=== PATIENT | female | born 1950 | race Caucasian/White ===

== ENCOUNTER → 2017-03-01 | Outpatient (POV) | payer MEDICARE, SELFPAY | PROVIDERS: Visit Provider Podiatrist ==

== ENCOUNTER → 2017-03-29 | Outpatient (POV) | payer MEDICARE, SELFPAY | PROVIDERS: Visit Provider Podiatrist ==

== ENCOUNTER → 2017-12-07 08:50 | Outpatient (CLI) | payer MEDICARE, SELFPAY ==
[2017-12-07 09:58] LABS: Hemoglobin A1C 6.2 % (0.0-7.0)
[2017-12-07 10:27] LABS: Alanine Aminotransferase 31 U/L (12-78); Albumin Level 4.2 gm/dL (3.4-5.0); Albumin/Globulin Ratio 1.4 (1.1-1.8); Alkaline Phosphatase 100 U/L (46-116); Anion Gap 13.8 mEq/L (5-15); Aspartate Amino Transferase 12 U/L (15-37); Bilirubin,Total 0.5 mg/dL (0.2-1.0); Blood Urea Nitrogen 17 mg/dL (7-18); Calcium 9.4 mg/dL (8.5-10.1); Carbon Dioxide 31 mmol/L (21.0-32.0); Chloride 105 mmol/L (98-107); Chol/HDL Ratio 4.8 (1-3.5); Cholesterol 186 mg/dL (140-200); Creatinine,Serum 0.92 mg/dL (0.55-1.02); Estimated Glomerular Filt Rate 61 ml/min (>60); GFR (African American) 73 ML/MIN (>60); Globulin 3.1 gm/dl (1.3-3.2); Glucose 138 mg/dL (74-106); HDL Cholesterol 39 mg/dL (29-89); LDL Cholesterol 106 mg/dL (0-130); Potassium 3.8 mmoL/L (3.5-5.1); Sodium 146 mmol/L (136-145); Total Protein,Serum 7.3 gm/dL (6.4-8.2); Triglycerides 204 mg/dL (30-200); VLDL Cholesterol 41 mg/dL (0-40)
== END ==
PROVIDERS: Visit Provider Family Medicine
DX: I10 Essential (primary) hypertension (principal); E78.5 Hyperlipidemia, unspecified; E55.9 Vitamin D deficiency, unspecified; G62.9 Polyneuropathy, unspecified; Z79.899 Other long term (current) drug therapy
CPT/HCPCS: 36415; 80053; 80061; 82652; 83036

== ENCOUNTER → 2018-02-04 13:24 | Outpatient (POV) | payer MEDICARE, SELFPAY | PROVIDERS: PCP Family Medicine; Visit Provider Dermatology | DX: Z00.00 Encounter for general adult medical examination without abnormal findings (principal) ==

== ENCOUNTER → 2018-02-11 14:14 | Outpatient (POV) | payer MEDICARE, SELFPAY | PROVIDERS: PCP Family Medicine; Visit Provider Dermatology | DX: Z00.00 Encounter for general adult medical examination without abnormal findings (principal) ==

== ENCOUNTER → 2018-06-24 12:49 | Outpatient (POV) | payer MEDICARE, SELFPAY | PROVIDERS: Visit Provider Dermatology | DX: Z00.00 Encounter for general adult medical examination without abnormal findings (principal) ==

== ENCOUNTER → 2018-09-09 10:23 | Outpatient (POV) | payer MEDICARE, SELFPAY | PROVIDERS: Visit Provider Dermatology | DX: Z00.00 Encounter for general adult medical examination without abnormal findings (principal) ==

== ENCOUNTER → 2018-09-23 09:02 | Outpatient (POV) | payer MEDICARE, SELFPAY | PROVIDERS: Visit Provider Dermatology | DX: Z00.00 Encounter for general adult medical examination without abnormal findings (principal) ==

== ENCOUNTER → 2018-09-30 11:58 | Outpatient (CLI) | payer MEDICARE, SELFPAY ==
--- NOTE | 2018-09-30 12:05 | XR_ITS ---
XR wrist RT min 3V HISTORY posttraumatic pain ITS.REASON: RT HAND INJURY ORDERING PHYSICIAN: Andreas Talley MD PATIENT AGE: 68 years Comparison: None FINDINGS: No fracture or dislocation. No lytic or blastic change. There is normal mineralization.. The joint spaces are well-preserved. There are mild osteoarthritic changes of the first metacarpal carpal joint with a small periarticular calcification along the ulnar aspect of the first metacarpal carpal joint. IMPRESSION: No acute finding
--- NOTE | 2018-09-30 12:05 | XR_ITS ---
XR hand RT min 3V HISTORY: Posttraumatic pain ITS.REASON: RT HAND INJURY ORDERING PHYSICIAN: Andreas Talley MD PATIENT AGE: 68 years COMPARISON: None FINDINGS: No fracture or dislocation. No lytic or blastic change. There is normal mineralization.. The joint spaces are well-preserved. No significant degenerative/arthritic changes. No erosive changes evident.. IMPRESSION: Negative, no acute finding
== END ==
PROVIDERS: PCP Family Medicine; Visit Provider Family Medicine
DX: M25.531 Pain in right wrist (principal); M79.641 Pain in right hand
CPT/HCPCS: 73110; 73130

== ENCOUNTER → 2018-10-02 08:33 | Outpatient (CLI) | payer MEDICARE, SELFPAY ==
[2018-10-02 11:02] LABS: Hemoglobin A1C 6.2 % (0.0-7.0)
[2018-10-02 12:47] LABS: Alanine Aminotransferase 37 U/L (12-78); Albumin Level 4.1 gm/dL (3.4-5.0); Albumin/Globulin Ratio 1.4 (1.1-1.8); Alkaline Phosphatase 91 U/L (46-116); Anion Gap 15.9 mEq/L (5-15); Aspartate Amino Transferase 18 U/L (15-37); Bilirubin,Total 0.6 mg/dL (0.2-1.0); Blood Urea Nitrogen 17 mg/dL (7-18); Carbon Dioxide 28 mmol/L (21.0-32.0); Chloride 105 mmol/L (98-107); Chol/HDL Ratio 4.8 (1-3.5); Cholesterol 163 mg/dL (140-200); Creatinine,Serum 0.87 mg/dL (0.55-1.02); Estimated Glomerular Filt Rate 64 ml/min (>60); GFR (African American) 78 ML/MIN (>60); Globulin 2.9 gm/dl (1.3-3.2); Glucose 149 mg/dL (74-106); HDL Cholesterol 34 mg/dL (29-89); LDL Cholesterol 94 mg/dL (0-130); Potassium 3.9 mmoL/L (3.5-5.1); Sodium 145 mmol/L (136-145); Thyroid Stimulating Hormone 2.61 uIU/ml (0.358-3.740); Triglycerides 177 mg/dL (30-200); VLDL Cholesterol 35 mg/dL (0-40)
== END ==
PROVIDERS: Visit Provider Family Medicine
DX: E78.5 Hyperlipidemia, unspecified (principal); R73.9 Hyperglycemia, unspecified; I10 Essential (primary) hypertension; G62.9 Polyneuropathy, unspecified
CPT/HCPCS: 36415; 80053; 80061; 83036; 84443

== ENCOUNTER → 2018-11-19 11:32 | Outpatient (CLI) | payer MEDICARE, SELFPAY ==
--- NOTE | 2018-11-19 11:42 | XR_ITS ---
XR chest 2V HISTORY: ITS.REASON: F/U PNEUMONIA shortness of air, previous pneumonia ORDERING PHYSICIAN: Andreas Talley MD PATIENT AGE: 68 years COMPARISON: 12/09/2015 FINDINGS: Mild cardiomegaly. COPD with mild hyperinflation. Mild scarring in the anterior clear space inferiorly. No lobar consolidation or collapse. No acute bony findings. IMPRESSION: Borderline cardiomegaly with COPD. No change with no acute finding.
== END ==
PROVIDERS: PCP Family Medicine; Visit Provider Family Medicine
DX: R06.02 Shortness of breath (principal); Z87.01 Personal history of pneumonia (recurrent)
CPT/HCPCS: 71046

== ENCOUNTER → 2018-12-01 12:53 | Outpatient (CLI) | payer MEDICARE, SELFPAY ==
--- NOTE | 2018-12-01 12:55 | CT_ITS ---
CT lung screening EXAM: CT LUNG LOW DOSE WO CONTRAST HISTORY: 30 pack-year smoking history, asymptomatic for lung cancer ITS.REASON: CURRENT TOBACCO USE ORDERING PHYSICIAN: Andreas Talley MD PATIENT AGE: 68 years COMPARISON: None TECHNIQUE: The exam was performed on a [employer] Speed [address] scanner using 2.90 mGy CTDI. A low dose helical CT CHEST was performed on a multi-detector scanner. All CT scans at the facility use one or more dose reduction, viz: automated exposure control, ma/kV adjustment per patient size (including targeted exams where dose is matched to indication, i.e. head), or iterative reconstruction technique. The LDCT was performed in a facility that meets the criteria for the screening program. Data regarding this exam was submitted to ACR which is an approved registry. The order for this exam indicates that it came as a result of a lung cancer screening counseling shard decision-making visit that included all the elements required of such a visit including smoking cessation. The radiologist interpreting this exam meets the CMS criteria for the LDCT lung cancer screening program. The exam is reported using the Lung-RADS classification scale and reported to the ACR registry. NOTE: This study was performed for the specific purposes of lung cancer screening and is not an alternative to diagnostic chest CT. RADIATION DOSE: CTDI vol(CT dose Index-volume) = 2.90mG DLP (Dose Length Product) = 104.73 mGcm FINDINGS: There are coronary artery calcifications. Fibrotic or atelectatic changes are present in the right upper lobe. 3 mm noncalcified nodule present in the right upper lobe laterally. Atelectatic or fibrotic change in the lingula. COPD patchy infiltrate in the right upper lobe IMPRESSION: 1. Lung RADS Category: 2, benign 2. Other findings: COPD, right upper lobe infiltrate, fibrotic/atelectatic change, coronary artery calcification RECOMMENDATIONS: 12 month LDCT follow-up
== END ==
PROVIDERS: PCP Family Medicine; Visit Provider Family Medicine
DX: Z12.2 Encounter for screening for malignant neoplasm of respiratory organs (principal); Z87.891 Personal history of nicotine dependence

== ENCOUNTER → 2019-02-10 12:58 | Outpatient (POV) | payer MEDICARE, SELFPAY | PROVIDERS: Visit Provider Dermatology | DX: Z00.00 Encounter for general adult medical examination without abnormal findings (principal) ==

== ENCOUNTER → 2019-05-05 14:49 | Outpatient (CLI) | payer MEDICARE, SELFPAY ==
--- NOTE | 2019-05-05 14:56 | XR_ITS ---
PROCEDURE: XR KNEE STANDING BI CLINICAL INDICATION: KNEE PAIN Bilateral knee pain worse on the right COMPARISON: No exams were available for comparison FINDINGS: Right knee: Minimal osteoarthritic change medial compartment and patellofemoral joint. Left knee: Mild osteoarthritic change medial compartment and patellofemoral joint IMPRESSION: Mild osteoarthritis of the knees slightly greater on the left Dictated by: Chris Cancino MD 05/05/2019 15:31 Electronically signed by Chris Cancino MD in [place] 05/05/2019 15:31
== END ==
PROVIDERS: PCP Family Medicine; Visit Provider Family Medicine
DX: M25.561 Pain in right knee (principal)
CPT/HCPCS: 73565

== ENCOUNTER → 2019-06-09 14:03 | Outpatient (POV) | payer MEDICARE, SELFPAY | PROVIDERS: PCP Dermatology; Visit Provider Dermatology | DX: Z00.00 Encounter for general adult medical examination without abnormal findings (principal) ==

== ENCOUNTER → 2019-10-17 09:09 | Outpatient (CLI) | payer MEDICARE, SELFPAY ==
--- NOTE | 2019-10-17 09:24 | XR_ITS ---
PROCEDURE: XR CHEST 2V Patient Age:69Y CLINICAL HISTORY: SOB COMPARISON: December 08 and 2015 PA and lateral CXR FINDINGS: Today's PA and lateral chest are compared to 2016 exams but no significant new findings. Again suggestion COPD/emphysematous changes with hyperexpansion at the upper lung gurrola with accentuation markings towards the lung bases similar to previous studies. Stable anterior fat pad along with some minimal scarring at the medial right lung base similar to previous study-and partially obscure the right heart border. Minimal linear scarring towards the LLL lobe-stable. Heart is upper normal in size.. Normal pulmonary vascularity. The caterina and mediastinal structures appear stable and satisfactory. Chest wall unremarkable. T-spine stable no compression fractures but no pleural effusion or pneumothorax but arthritic changes to both shoulders. Involving AC joint and possibly at rotator cuff demise or thinning. IMPRESSION: Nothing definitely acute Chronic lung changes, with no significant new cardiopulmonary compared to 2016 Dictated by: Shola Morales MD 10/18/2019 12:48 Electronically signed by Shola Morales MD in [place] 10/18/2019 12:48
[2019-10-17 10:45] LABS: Hemoglobin A1C 7.2 % (4.0-6.0)
[2019-10-17 11:07] LABS: Chloride 103 mmol/L (98-107); Sodium 139 mmol/L (136-145)
[2019-10-17 11:10] LABS: Alanine Aminotransferase 47 U/L (12-78); Albumin Level 4.3 g/dl (3.5-5.0); Albumin/Globulin Ratio 1.8 (1.1-1.8); Alkaline Phosphatase 83 U/L (38-126); Aspartate Amino Transferase 38 U/L (14-36); Bilirubin,Total 0.8 mg/dl (0.2-1.3); Blood Urea Nitrogen 13 mg/dl (7-17); Calcium 9.3 mg/dl (8.4-10.2); Carbon Dioxide 29 mmol/L (22.0-30.0); Cholesterol 160 mg/dl (140-200); Estimated Glomerular Filt Rate 99 ml/min (>60); GFR (African American) 119 ML/MIN (>60); Globulin 2.4 g/dL (1.3-3.2); Glucose 203 mg/dl (74-100); Total Protein,Serum 6.7 g/dl (6.3-8.2); Triglycerides 179 mg/dl (30-150); VLDL Cholesterol 36 mg/dL (0-40)
[2019-10-17 11:11] LABS: HDL Cholesterol 40 mg/dl (40-60)
[2019-10-17 11:17] LABS: NT Pro Brain Natriuretic Pep. 95.3 pg/mL (0-125)
[2019-10-17 11:22] LABS: Direct LDL Cholesterol 101.97 mg/dL (100-129)
== END ==
PROVIDERS: Visit Provider Family Medicine
DX: Z00.00 Encounter for general adult medical examination without abnormal findings (principal); R06.00 Dyspnea, unspecified; E78.5 Hyperlipidemia, unspecified; Z79.899 Other long term (current) drug therapy
CPT/HCPCS: 36415; 71046; 80053; 80061; 83036; 83880

== ENCOUNTER → 2019-11-24 16:29 | Outpatient (CLI) | payer MEDICARE, SELFPAY ==
--- NOTE | 2019-11-24 | XR_ITS ---
PROCEDURE: XR CHEST PORTABLE CLINICAL HISTORY: Cough COMPARISON: CR CXR CHEST(2 VIEWS-NOT PORTABLE) from 12/02/2015 CR CXR CHEST(2 VIEWS-NOT PORTABLE) from 12/09/2015 CR XR CHEST 2V from 10/17/2019 FINDINGS: The cardiomediastinal silhouette and pulmonary vascularity are within normal limits. The lungs are clear without infiltrates, suspicious nodules, or pleural effusions. Artifact is present from the patient's undergarments IMPRESSION: No acute findings. Dictated b Chris Cancino MD 11/24/2019 18:54 Chris Cancino MD in [facility] 11/24/2019 18:54
[2019-11-24 17:07] LABS: Basophils % 0.4 % (0.1-2.0); Eosinophils # 0.1 K/mm3 (0.0-0.4); Eosinophils % 1.2 % (0.1-12.0); Hematocrit 42.8 % (37.0-47.0); Lymphocytes % 35.8 % (10-50); Mean Corpuscular HGB Conc 35.2 g/dL (31.8-35.4); Mean Corpuscular Hemoglobin 31.1 pg (27.0-31.2); Mean Corpuscular Volume 88.6 fl (81-99); Mean Platelet Volume 8.6 fl (7.4-10.4); Monocytes # 0.4 K/mm3 (0.1-1.0); Monocytes % 7.7 % (1.7-9.3); Neutrophils % 54.9 % (37.0-80.0); Platelet Count 177 K/mm3 (142-424); Red Blood Count 4.83 M/mm3 (4.20-5.40); Red Cell Distribution Width 13.1 % (11.5-17.5); White Blood Count 5.5 K/mm3 (4.8-10.8)
== END ==
PROVIDERS: PCP Family Medicine; Visit Provider Nurse Practitioner Family
DX: U07.1 COVID-19 (principal); R05 Cough
CPT/HCPCS: 36415; 71045; 85025; U0003

== ENCOUNTER → 2020-01-01 12:44 | Outpatient (CLI) | payer MEDICARE, SELFPAY ==
--- NOTE | 2020-01-01 12:44 | XR_ITS ---
PROCEDURE: XR ANKLE WT BEARING RT MIN 3V CLINICAL INDICATION: lower extremity pain and swelling. COMPARISON: CR ANKL3 ANKLE-LT-3 VIEWS from 09/29/2016 FINDINGS: Bones: No fracture or dislocation. No lytic or blastic change. There is normal mineralization. Joints: The joint spaces are well-preserved. No significant degenerative/arthritic changes. No erosive changes evident. Other findings:None. IMPRESSION: Negative right ankle Dictated by: Chris Cancino MD 01/01/2020 13:54 Chris Cancino MD in [place] 01/01/2020 13:54
--- NOTE | 2020-01-01 12:44 | XR_ITS ---
PROCEDURE: XR FOOT WT BEARING LT 3V CLINICAL INDICATION: pain and swelling of the lower extremities. COMPARISON: CR ANKL3 ANKLE-LT-3 VIEWS from 09/29/2016 CR FTR3 FOOT-RT-3 VIEWS from 02/12/2017 CR FTL3 FOOT-LT-3 VIEWS from 02/12/2017 CR XR ANKLE WT BEARING LT MIN 3V from 01/01/2020 FINDINGS: Mild pes planus. Mild osteoarthritic changes are present at the 1st metatarsophalangeal joint. There is a prominent os trigonum. There is minimal cortical lobularity of the talar dome. This is of questionable clinical significance. No sclerosis or defects are evident. IMPRESSION: Mild degenerative changes the with pes planus. Overall no significant change from 09/29/2016 Dictated by: Chris Cancino MD 01/01/2020 13:58 Chris Cancino MD in [place] 01/01/2020 13:58
--- NOTE | 2020-01-01 12:44 | XR_ITS ---
PROCEDURE: XR FOOT WT BEARING RT 3V CLINICAL INDICATION: pain and swelling lower extremity COMPARISON: CR FTR3 FOOT-RT-3 VIEWS from 02/12/2017 CR FTL3 FOOT-LT-3 VIEWS from 02/12/2017 FINDINGS: There is mild pes planus with minimal superior subluxation of the navicular at the talonavicular joint with bony hypertrophic changes at the talonavicular joint. There is a prominent os trigonum. No acute fracture or dislocation is evident. There are mild hypertrophic changes at the distal aspect of the 1st metatarsal. IMPRESSION: Pes planus with degenerative changes. Pes planus has worsened compared to 02/12/2017 Dictated by: Chris Cancino MD 01/01/2020 13:53 Chris Cancino MD in [place] 01/01/2020 13:53
--- NOTE | 2020-01-01 12:50 | CT_ITS ---
PROCEDURE: CT LUNG SCREENING CLINICAL INDICATION: H/O NICOTINE DEPENDENCE former smoker quit 1 year ago 31 pack year smoking history prior 12/01/18 postitive covid-19, 11/23/19 COMPARISON: CT LUNGSCREEN CT lung screening from 12/01/2018 TECHNIQUE: The exam was performed on a [employer] Speed [address] scanner using 2.90 mGy CTDI. A low dose helical CT CHEST was performed on a multi-detector scanner. All CT scans at the facility use one or more dose reduction, viz: automated exposure control, ma/kV adjustment per patient size (including targeted exams where dose is matched to indication, i.e. head), or iterative reconstruction technique. The LDCT was performed in a facility that meets the criteria for the screening program. Data regarding this exam was submitted to ACR which is an approved registry. The order for this exam indicates that it came as a result of a lung cancer screening counseling shard decision-making visit that included all the elements required of such a visit including smoking cessation. The radiologist interpreting this exam meets the CMS criteria for the LDCT lung cancer screening program. The exam is reported using the Lung-RADS classification scale and reported to the ACR registry. NOTE: This study was performed for the specific purposes of lung cancer screening and is not an alternative to diagnostic chest CT. RADIATION DOSE: CTDI vol(CT dose Index-volume) = 2.90mG DLP (Dose Length Product) = 102.38 mGcm FINDINGS: PD changes. Scattered areas of scarring. 3 mm nodules present in the left lower lobe unchanged. No new nodules identified. OTHER FINDINGS: Coronary artery calcifications. Fatty liver IMPRESSION: Lung-RADS Category 2 Benign Appearance or Behavior Follow-up: Continue annual screening with LDCT in 12 months Dictated by: Chris Cancino MD 01/06/2020 08:48 Chris Cancino MD in [place] 01/06/2020 08:49
== END ==
PROVIDERS: PCP Family Medicine; Visit Provider Family Medicine
DX: M25.471 Effusion, right ankle (principal); M25.472 Effusion, left ankle; M25.474 Effusion, right foot; M25.475 Effusion, left foot; Z87.891 Personal history of nicotine dependence; Z12.2 Encounter for screening for malignant neoplasm of respiratory organs
CPT/HCPCS: 73610; 73630

== ENCOUNTER → 2020-10-08 09:07 | Outpatient (CLI) | payer MEDICARE, SELFPAY ==
[2020-10-08 09:38] LABS: Hemoglobin A1C 6.1 % (4.0-6.0)
[2020-10-08 10:13] LABS: Chloride 105 mmol/L (98-107); Potassium 4.3 mmoL/L (3.5-5.1); Sodium 144 mmol/L (136-145)
[2020-10-08 10:16] LABS: Alanine Aminotransferase 40 U/L (12-78); Albumin Level 4.6 g/dl (3.5-5.0); Albumin/Globulin Ratio 1.8 (1.1-1.8); Alkaline Phosphatase 89 U/L (38-126); Anion Gap 17.3 mEq/L (5-15); Aspartate Amino Transferase 40 U/L (14-36); Bilirubin,Total 0.8 mg/dl (0.2-1.3); Blood Urea Nitrogen 17 mg/dl (7-17); Calcium 9.4 mg/dl (8.4-10.2); Carbon Dioxide 26 mmol/L (22.0-30.0); Chol/HDL Ratio 4.2 (1-3.5); Cholesterol 161 mg/dl (140-200); Estimated Glomerular Filt Rate 98 ml/min (>60); GFR (African American) 119 ML/MIN (>60); Globulin 2.6 g/dL (1.3-3.2); Glucose 168 mg/dl (74-100); HDL Cholesterol 38 mg/dl (40-60); Total Protein,Serum 7.2 g/dl (6.3-8.2); Triglycerides 191 mg/dl (30-150); VLDL Cholesterol 38 mg/dL (0-40)
[2020-10-08 10:27] LABS: Direct LDL Cholesterol 97.14 mg/dL (100-129)
== END ==
PROVIDERS: Visit Provider Family Medicine
DX: E11.9 Type 2 diabetes mellitus without complications (principal); I10 Essential (primary) hypertension; E78.5 Hyperlipidemia, unspecified; Z79.84 Long term (current) use of oral hypoglycemic drugs
CPT/HCPCS: 36415; 80053; 80061; 83036

== ENCOUNTER → 2020-10-18 09:56 | Outpatient (CLI) | payer MEDICARE, SELFPAY ==
--- NOTE | 2020-10-18 09:58 | XR_ITS ---
PROCEDURE: XR DEXA AXIAL SKELETON CLINICAL HISTORY: POST MENOPAUSAL COMPARISON: CR BONE3 BONE DENSITOMETRY(HIP:LT SPINE from 10/03/2016 FINDINGS: The right hip BMD is 0.921 with a T-score of -0.2. The left hip BMD is 0.839 with a T-score of -0.1. The lumbar spine BMD is 1.002 with a T-score of -0.4. Previously the lowest density was in the forearm radius with a T-score of -0.6 IMPRESSION: This patient is considered normal according to the World Health Organization criteria. Fracture risk is low. Based on these results a follow-up exam is recommended in 2 year. Dictated by: Chris Cancino MD 10/19/2020 07:28 Chris Cancino MD in [place] 10/19/2020 07:28
== END ==
PROVIDERS: PCP Family Medicine; Visit Provider Family Medicine
DX: Z78.0 Asymptomatic menopausal state (principal); Z13.820 Encounter for screening for osteoporosis
CPT/HCPCS: 77080

== ENCOUNTER → 2020-11-04 10:36 | Outpatient (CLI) | payer MEDICARE, SELFPAY ==
--- NOTE | 2020-11-04 10:41 | XR_ITS ---
PROCEDURE: XR FOOT WT BEARING LT 3V CLINICAL INDICATION: 4th toe pain, hit toe on furniture COMPARISON: CR FTR3 FOOT-RT-3 VIEWS from 02/12/2017 CR FTL3 FOOT-LT-3 VIEWS from 02/12/2017 CR XR FOOT WT BEARING LT 3V from 01/01/2020 CR XR FOOT WT BEARING RT 3V from 01/01/2020 FINDINGS: No fracture or dislocation. No lytic or blastic change. There is normal mineralization. The joint spaces are well-preserved. No significant degenerative/arthritic changes. No erosive changes evident. Other findings:Borderline pes planus. IMPRESSION: No acute findings. Dictated by: Chris Cancino MD 11/04/2020 11:12 Chris Cancino MD in [place] 11/04/2020 11:12
== END ==
PROVIDERS: PCP Family Medicine; Visit Provider Podiatrist
DX: M79.675 Pain in left toe(s)
CPT/HCPCS: 73630

== ENCOUNTER → 2021-01-30 15:47 | Outpatient (CLI) | payer MEDICARE, SELFPAY ==
--- NOTE | 2021-01-30 15:53 | XR_ITS ---
PROCEDURE INFORMATION: Exam: XR Sacrum and Coccyx, 2 or More Views Exam date and time: 01/30/2021 3:53 PM Age: 70 years old Clinical indication: Injury or trauma; Fall; Blunt trauma (contusions or hematomas); Prior surgery; Surgery date: 6+ months; Surgery type: Lower back; Additional info: Back pain after a fall last week, PT stated pain when sitting down for long period of time TECHNIQUE: Imaging protocol: XR of the sacrum and coccyx, 2 or more views. COMPARISON: No relevant prior studies available. FINDINGS: Bones/joints: Partially visualized lower lumbosacral spine fixation hardware. Angular deformity and linear lucency through the proximal segment of the right S1 transpedicular screw. This is concerning for screw fracture. No other definitive hardware complications are appreciated. There is no evidence of acutely displaced fractures. There is no evidence of joint dislocation. No aggressive osseous lesions. There is grade 1 anterolisthesis of L4 in relation to L5, which appears of chronic etiology. Soft tissues: Normal. IMPRESSION: 1. High concern for fracture to the proximal segments of the S1 right transpedicular screw. This is of uncertain time frame. 2. No acutely displaced skeletal fractures are appreciated.
--- NOTE | 2021-01-30 15:53 | XR_ITS ---
PROCEDURE INFORMATION: Exam: XR Entire Spine, 6 or More Views, Scoliosis Exam date and time: 01/30/2021 3:53 PM Age: 70 years old Clinical indication: Injury or trauma; Fall; Blunt trauma (contusions or hematomas); Prior surgery; Surgery type: Lower back; Additional info: Back and neck pain after a fall last week TECHNIQUE: Imaging protocol: XR of the entire spine. 6 or more views. Evaluation for scoliosis. COMPARISON: CT LUNG SCREENING 01/01/2020 1:14 PM FINDINGS: Vertebrae: Cervical spine: The cervical spine demonstrates normal alignment. Vertebral body heights appear well preserved. Intervertebral disc spaces appear well preserved. Multilevel anterior osteophytes are noted. No acutely displaced fracture or dislocation. No aggressive osseous lesions. There is diffuse and severe uncovertebral joint hypertrophy appreciated. Mild bony neural foraminal stenosis appreciated at C5-C6 bilaterally. No other significant bony neural foraminal stenosis is noted. The spinal canal is completely patent. The atlantoaxial joint appears unremarkable except for mild degenerative changes. Thoracic spine: Normal anatomic alignment. Mild multilevel decrease in intervertebral disc space. Vertebral body heights appear well preserved. Spinal canal is patent. Posterior elements appear intact. No acutely displaced fracture or dislocation. No aggressive osseous lesions. Lumbar spine: Prior lumbosacral spine fixation at L5 and S1. Redemonstration of a fracture to the proximal segments of the right S1 transpedicular screw. Questionable linear lucency to the proximal segments of the left S1 transpedicular screw. No other hardware complications are otherwise grossly noted. Vertebral body heights appear well preserved. Mild multilevel decrease in intervertebral disc space. Grade 1 anterolisthesis of L4 in relation to L5. Grade 1 anterolisthesis of L5 in relation to S1. Spinal canal remains patent. No acutely displaced skeletal fractures. No dislocation. Soft tissues: No acute soft tissue findings. IMPRESSION: 1. Redemonstration to a screw fracture of the S1 right transpedicular screw. 2. Questionable fracture versus artifact to the proximal segments of the S1 left transpedicular screw. 3. Grade 1 anterolisthesis of L4 in relation to L5 and L5 in relation to S1. 4. No acutely displaced spine fractures are appreciated. No definitive dislocation or aggressive osseous lesions.
== END ==
PROVIDERS: PCP Family Medicine; Visit Provider Family Medicine
DX: M54.2 Cervicalgia (principal); M54.9 Dorsalgia, unspecified; M53.3 Sacrococcygeal disorders, not elsewhere classified
CPT/HCPCS: 72084; 72220

== ENCOUNTER → 2021-02-07 14:01 | Outpatient (POV) | payer MEDICARE, SELFPAY | PROVIDERS: Visit Provider Dermatology | DX: Z00.00 Encounter for general adult medical examination without abnormal findings (principal) ==

== ENCOUNTER → 2021-02-10 07:38 | Outpatient (CLI) | payer MEDICARE, SELFPAY ==
--- NOTE | 2021-02-10 07:43 | CT_ITS ---
PROCEDURE: CT LUMBAR SPINE WO CON CLINICAL HISTORY: BACK PAIN Fractured screw seen x-ray COMPARISON: CR XR MULTIPLE SPINE 6+V from 01/30/2021 TECHNIQUE: Axial images obtained with sagittal and coronal reformats. All CT scans at the facility use one or more dose reduction, viz: automated exposure control, ma/kV adjustment per patient size (including targeted exams where dose is matched to indication, i.e. head), or iterative reconstruction technique. FINDINGS: There is minimal concavity along the superior endplate of T12 and L1 consistent with minimal compression changes. L2-L3: Mild bulging disc at L2-L3 with mild facet hypertrophic change. L3-L4: Concentric bulging disc at L3-L4 with small right foraminal disc protrusion with facet and ligamentum hypertrophy and borderline canal stenosis with mild right foraminal narrowing. L4-5: Grade 1 spondylolisthesis of L4 on L5 7 mm with bulging disc. Considerable artifact is present at this level from inter pedicular screws and postsurgical changes at L5 with increased soft tissue density in the left foraminal region which could be due to protruding disc or artifact. MRI may provide further evaluation. There is narrowing of the left L4-5 foramen. Pars defect is present on the right L4. Inter pedicular screws are present in the superior aspect of L5 with prominent bony hypertrophy in transverse narrowing of the canal with bilateral lateral recess narrowing. L5-S1: 7 mm anterolisthesis of L5. There is loss of disc space at this level with degenerative disc disease. Significant artifact is present from the inter pedicular screws. Prior laminectomy at L5-S1. Plain films demonstrates a fracture of the right inter pedicular screw at S1. There is minimal cephalad angulation of the distal aspect of the screw. The fracture is not well depicted by CT and does not appear displaced. There is also a questionable fracture involving the left inter pedicular screw at S1 on the plain films with minimal cephalad angulation of the distal aspect of the screw. Incidental note is made diverticulosis of the sigmoid colon. Unremarkable appendix. IMPRESSION: 1. There is minimal concavity along the superior endplate of T12 and L1 consistent with minimal compression changes. 2. L2-L3: Mild bulging disc at L2-L3 with mild facet hypertrophic change. 3. L3-L4: Concentric bulging disc at L3-L4 with small right foraminal disc protrusion with facet and ligamentum hypertrophy and borderline canal stenosis with mild right foraminal narrowing. 4. L4-5: Grade 1 spondylolisthesis of L4 on L5 7 mm with bulging disc. Considerable artifact is present at this level from inter pedicular screws and postsurgical changes at L5 with increased soft tissue density in the left foraminal region which could be due to protruding disc or artifact. MRI may provide further evaluation. There is narrowing of the left L4-5 foramen. Pars defect is present on the right L4. Inter pedicular screws are present in the superior aspect of L5 with prominent bony hypertrophy in transverse narrowing of the canal with bilateral lateral recess narrowing. 5. L5-S1: 7 mm anterolisthesis of L5. There is loss of disc space at this level with degenerative disc disease. Significant artifact is present from the inter pedicular screws. Prior laminectomy at L5-S1. Plain films demonstrates a fracture of the right inter pedicular screw at S1. There is minimal cephalad angulation of the distal aspect of the screw. The fracture is not well depicted by CT and does not appear displaced. There is also a questionable fracture involving the left inter pedicular screw at S1 on the plain films with minimal cephalad angulation of the distal aspect of the screw. 6. Consider fl
== END ==
PROVIDERS: PCP Family Medicine; Visit Provider Nurse Practitioner Family
DX: M54.9 Dorsalgia, unspecified (principal); M54.50 Low back pain, unspecified
CPT/HCPCS: 72131

== ENCOUNTER → 2021-06-22 09:15 | Outpatient (POV) | payer MEDICARE, SELFPAY ==
[2021-06-22 09:24] VITALS: BP 155/70; PULSE 85; RESP 20; TEMP 36.3; O2SAT 96; BMI 39.2
--- NOTE | 2021-06-22 12:34 | [facility].PMCON ---
Assessment and Plan (1) Degenerative joint disease (DJD) of lumbar spine Status: Acute Category: Medical Code(s): M47.816 - Spondylosis without myelopathy or radiculopathy, lumbar region (2) Lumbar radiculopathy Status: Acute Category: Medical Code(s): M54.16 - Radiculopathy, lumbar region I discussed with the patient that she will benefit from lumbar epidural steroid injection under fluoroscopy at L4-L5 #1. I also discussed with the patient that she may benefit from a cervical epidural steroid injection at C6-C7 in the future for her chronic neck and arm pain. [place] and prior drug screens were reviewed and appropriate. We will follow-up with this patient for the lumbar epidural injection to be performed at the next clinic visit. (3) Degenerative disc disease, cervical Status: Acute Category: Medical Code(s): M50.30 - Other cervical disc degeneration, unspecified cervical region (4) Cervical radiculopathy Status: Acute Category: Medical Code(s): M54.12 - Radiculopathy, cervical region HPI - Data of Consult Patient: new to practice Consult date: 06/22/21 Requesting Physician: Allison Hawk MD - Consult Narrative Reason for consult: Chronic back pain History of present illness: Ms. Casiano is a 71 year old female seen for initial consultation for low back pain. She states that she has been experiencing this pain for many years now. She has previously undergone lumbar fusion at L5-S1 over 20 years ago. He describes the pain as a deep aching pain at baseline with sharp shooting exacerbations into her right leg. She states that the pain starts in her low back and radiates down the posterior aspect of her right leg. She also notes numbness and tingling as well as burning sensations. She rates her pain today as an 8 out of 10. She says previously trialed [id number] pain medication such as Tylenol and ibuprofen with very minimal pain relief. She has tried ice and heat therapy with very minimal pain relief. She also complains of chronic neck pain. She states that she has been having worsening pain for many months now and she describes it as a deep aching pain. She also notes sharp shooting pain that radiates into her arms. Also notes numbness and tingling down her right arm into the right hand affecting all of her digits. She states that both her neck and low back pain started after she had fallen at home back in January. She states that her pain has persisted since then. MRI of the lumbar spine demonstrated multilevel degenerative disc disease with moderate to severe bilateral neuroforaminal stenosis at L4-L5 and L5-S1. Is also evidence of prior lumbar fusion at L5-S1. There is also facet hypertrophy present at L3-4 and L4-L5. MRI of the cervical spine was performed and demonstrated multi-level degenerative disc disease including severe broad-based disc protrusion resulting in severe left and moderate to severe right neuroforaminal narrowing. Is also evidence of multilevel facet arthropathy at C3-C4, C4-C5, C5-C6, and C6-C7. CC: Allison Hawk MD [facility] History Medical History: Reports:: Atherosclerotic Heart Disease, Diabetes Mellitus Type 2, Hyperlipidemia, Hypertension Denies:: Cancer *Have you ever received a pneumonia vaccine?: Yes *Have you received a flu vaccine this season?: Yes Other Medical History: Reports: Arthritis Laterality Cases: Bilateral: Tonsillectomy Other Surgeries: Yes: Hysterectomy-Partial, Other - *Social History Smoking Status: Former smoker Alcohol Intake: never *Occupational Status:: other *Travel in the last 8 weeks: None Family Hx:: Diabetes, Heart Attack, Cancer, Hypertension, Hyperlipidemia Review of Systems - Review of Systems Review of systems:: pertinent systems reviewed and negative unless documented below Meds Home Medications Medication Instructions Recorded Confirmed Type amlodipine 10 mg-benazepril 40 mg 1 cap PO DAILY cap 01/05/20 06/22/21
== END ==
PROVIDERS: Visit Provider Anesthesiology Pain Medicine
DX: M47.896 Other spondylosis, lumbar region (principal); M54.16 Radiculopathy, lumbar region; M50.10 Cervical disc disorder with radiculopathy, unspecified cervical region
CPT/HCPCS: 99202; G0463

== ENCOUNTER 2021-07-14 09:05 | Day surgery (SDC) | payer MEDICARE, SELFPAY ==
[2021-07-14 09:13] VITALS: BP 140/72; BP 141/73; PULSE 68; RESP 18; RESP 20; O2SAT 92; O2SAT 94
[2021-07-14 09:17] VITALS: BP 150/78; PULSE 71; RESP 18; TEMP 36.1; O2SAT 94; BMI 38.9
--- NOTE | 2021-07-14 09:28 | P.PCN_ITS ---
- Procedure Date: 07/14/21 Time: 09:28 Anesthesiologist:: Allison Hawk MD Complications:: None Pre-procedure Diagnosis:: Degenerative disc of the lumbar spine, lumbar radiculopathy Post-procedure Diagnosis:: Same Indications for Procedure:: This patient is a very pleasant 71-year-old white female who presents today with chronic low back pain radiating to legs related to the above diagnosis. She has tried and failed conservative treatment including oral pain medications and home stretching program for greater than 6 weeks. MRI of the lumbar spine demonstrated multilevel degenerative disc disease with moderate to severe bilateral neuroforaminal stenosis at L4-L5 and L5-S1. She is also previously undergone lumbar fusion at L5-S1. The plan for today is for the patient to unde rgo a lumbar epidural steroid injection under fluoroscopy at L3-4 #1. Procedure Details:: Informed consent was obtained and the risk and benefits of the procedure was explained to the patient. The patient was taken to the procedure room. The patient was placed prone on the procedure table. The patient was prepped and draped in sterile fashion. C-arm fluoroscopy was used to view the lumbar spine. Skin and subcutaneous tissues were anesthetized using lidocaine. I placed an 18-gauge epidural needle and advanced into the L5-S1 interspace using fluoroscopic guidance and [id number] to air and saline. After confirmation of needle placement in the epidural space with dye I injected 1 mL of lidocaine 1.0% with Depo-Medrol 80 mg. Patient tolerated the procedure well with no complications. Plan and Disposition:: We will follow-up with this patient in 2 weeks for reassessment of her chronic pain symptoms.
[2021-07-14 10:30] VITALS: BP 170/91; PULSE 62; RESP 20; O2SAT 96
== END 2021-07-14 10:31 | disposition home or self-care (01) ==
LOC: SC.PAINP 09:07
PROVIDERS: PCP Family Medicine; Visit Provider Anesthesiology Pain Medicine
DX: M51.16 Intervertebral disc disorders with radiculopathy, lumbar region (principal); I25.10 Atherosclerotic heart disease of native coronary artery without angina pectoris; E11.9 Type 2 diabetes mellitus without complications; E78.5 Hyperlipidemia, unspecified; I10 Essential (primary) hypertension; M19.90 Unspecified osteoarthritis, unspecified site; Z87.891 Personal history of nicotine dependence
CPT/HCPCS: 62323; J1040; Q9966

== ENCOUNTER → 2021-08-14 14:12 | Outpatient (POV) | payer MEDICARE, SELFPAY ==
[2021-08-14 14:23] VITALS: BP 124/56; PULSE 65; RESP 18; TEMP 36.6; O2SAT 95; BMI 38.4
--- NOTE | 2021-08-14 14:50 | HMH.PAINSOAP ---
[facility] Pain Management SOAP Note Subjective:: This patient is a very pleasant 71-year-old female that is being coming to see us for chronic low back pain. Patient has had prior lumbar surgery. Patient's MRI does confirm disc bulge at the level above previous surgery. Patient comes in today for follow-up after receiving lumbar epidural steroid injection at the L4-5 level. Patient reports minimal relief if any from the injection. Patient also states she had some chest pain and left arm pain at home several hours after the injection. However, patient has had this type of angina in the past and is treating herself with nitroglycerin pills. She said after taking the nitroglycerin pill the pain subsided. Patient does have a stent. Patient also takes blood thinner. I discussed in detail with the patient regarding a plethora of issues going on in her lumbar area. Degenerative disc disease lumbar spine. Postlaminectomy syndrome. Bilateral facet arthropathy lumbar spine. Bilateral sacroiliitis. Upon examination she has extreme point tenderness over the bilateral SI joints. I discussed in detail medial branch block versus SI joint injection. She states the low back pain is 8/10. She has difficulty standing for any length of time. Walking for any length of time increases pain significantly. Objective:: Patient is awake alert oriented x3. In no acute distress. Flexion and extension of the lumbar spine somewhat guarded secondary to pain. Deep tendon reflexes upper and lower extremities normal. Motor strength upper and lower extremities normal. There is no gross sensory deficit. Gait is normal. Assessment:: Degenerative disc disease lumbar spine. Lumbar postlaminectomy syndrome. Bilateral sacroiliitis. Lumbar facet arthropathy. Lumbar radicular symptoms. Plan:: We will plan bilateral SI joint injection. [facility] History Medical History: Reports:: Atherosclerotic Heart Disease, Diabetes Mellitus Type 2, Hyperlipidemia, Hypertension, MRSA Denies:: Cancer, Diabetes Mellitus Type 1 *Have you ever received a pneumonia vaccine?: Yes *Have you received a flu vaccine this season?: Yes Other Medical History: Reports: Arthritis Laterality Cases: Bilateral: Tonsillectomy Other Surgeries: Yes: Hysterectomy-Partial, Other - *Social History Smoking Status: Never smoker Alcohol Intake: never *Occupational Status:: other *Travel in the last 8 weeks: None Family Hx:: Diabetes, Heart Attack, Cancer, Hypertension, Hyperlipidemia
== END ==
PROVIDERS: Visit Provider Nurse Anesthetist, Certified Registered
DX: M51.16 Intervertebral disc disorders with radiculopathy, lumbar region (principal); M96.1 Postlaminectomy syndrome, not elsewhere classified; M46.1 Sacroiliitis, not elsewhere classified; M47.896 Other spondylosis, lumbar region
CPT/HCPCS: 95991; 99212; G0463

== ENCOUNTER 2021-08-18 09:57 | Day surgery (SDC) | payer MEDICARE, SELFPAY ==
--- NOTE | 2021-08-18 07:51 | CT_ITS ---
FINAL REPORT CLINICAL HISTORY: former smoker for 10 years, quit 3 years ago, smoker 1/2 pack per day, hx skin cancer, hx of lung cancer in pt mother, secod hand smoke exposure COMPARISON: January 01, 2020 FINDINGS: Low-Dose Chest CT CTDI vol (mGy): 2.90 DLP (mGy-cm): 97.95 Axial images were obtained from the lung apex to the mid abdomen by computed tomography. Low-dose protocol was utilized. FINDINGS: CHEST: There is no axillary adenopathy. There is no hilar or mediastinal adenopathy. There is dense coronary artery calcification. The heart is proper size. There is no pericardial or pleural effusion. Limited images of the upper abdomen are unremarkable. Lung window images demonstrate stable minimal pleural density in the right lower lobe on image 49 of series 3. No new nodule is identified. IMPRESSION: Lung RADS category 1. Recommend 12 month follow-up low-dose chest CT. Reviewed, Interpreted and Dictated by Clarence Shields MD Transcribed by Jasiel Babcock Authenticated by Clarence Shields MD on 08/18/2021 01:29:08 PM [facility]
[2021-08-18 10:14] VITALS: BP 140/64; BP 144/84; BP 163/59; PULSE 67; PULSE 69; RESP 18; RESP 20; TEMP 36.5; O2SAT 93; O2SAT 94; O2SAT 95; BMI 38.4
[2021-08-18 10:20] VITALS: BP 144/69; PULSE 68; RESP 20; TEMP 36.3; O2SAT 96
--- NOTE | 2021-08-18 10:44 | HMH.PMPROC ---
- Procedure Date: 08/18/21 Time: 10:44 Anesthesiologist:: Frank Desai MD Complications:: None Pre-procedure Diagnosis:: Sacroiliitis Post-procedure Diagnosis:: Same Indications for Procedure:: This patient is a pleasant 71-year-old white female who we are treating for bilateral hip pain. She is tender over both SI joints. She has a positive Karen's test bilaterally. She is positive Tremayne test bilaterally. She has positive SI joint compression test bilaterally. We will plan on bilateral SI joint injections under fluoroscopy today to help with her pain symptoms. Procedure Details:: B/L SI joint injection under fluoroscopy Informed consent was obtained and the risks and benefits of the procedure was explained to the patient. The patient was taken to the procedure room and placed prone on the procedure table. The patient was prepped using ChloraPrep. The skin and subcutaneous tissues overlying the SI joints were anesthetized using lidocaine. I placed a 22-gauge needle first in the left SI joint and second in the right SI joint. Needle placement was confirmed with dye. After this we injected 5 mL bupivacaine 0.25% and Depo-Medrol 40 mg into each SI joint. Patient tolerated the procedure well with no complication. Plan and Disposition:: We will follow-up with her in 2 weeks. Will reevaluate her symptoms at that time.
== END 2021-08-18 10:30 | disposition home or self-care (01) ==
PROVIDERS: PCP Family Medicine; Visit Provider Anesthesiology
DX: M46.1 Sacroiliitis, not elsewhere classified (principal); I25.10 Atherosclerotic heart disease of native coronary artery without angina pectoris; E11.9 Type 2 diabetes mellitus without complications; E78.5 Hyperlipidemia, unspecified; I10 Essential (primary) hypertension; M19.90 Unspecified osteoarthritis, unspecified site; Z86.14 Personal history of Methicillin resistant Staphylococcus aureus infection; F17.200 Nicotine dependence, unspecified, uncomplicated
CPT/HCPCS: 27096; 71271; G0260; J1030; Q9966

== ENCOUNTER → 2021-11-14 16:40 | Outpatient (CLI) | payer MEDICARE, SELFPAY ==
--- NOTE | 2021-11-14 16:52 | XR_ITS ---
PROCEDURE INFORMATION: Exam: XR Chest Exam date and time: 11/14/2021 5:04 PM Age: 71 years old Clinical indication: Shortness of breath; Additional info: Covid out patient. SOB, fatigue, headache. TECHNIQUE: Imaging protocol: Radiologic exam of the chest. Views: 1 view. COMPARISON: CR XR CHEST PORTABLE 11/24/2019 4:56 PM FINDINGS: Lungs: Slight residual scarring or atelectasis in the left lung base. Pleural spaces: Unremarkable. No pleural effusion. No pneumothorax. Heart/Mediastinum: Unremarkable. No cardiomegaly. Bones/joints: Degenerative spondylosis of thoracic spine. Acromioclavicular arthropathy. IMPRESSION: 1. Slight residual scarring or atelectasis in the left lung base. 2. Otherwise no evidence of acute cardiopulmonary process.
[2021-11-14 18:01] LABS: Basophils # 0.1 K/mm3 (0-0.2); Basophils % 0.8 % (0.1-2.0); Eosinophils # 0.3 K/mm3 (0.0-0.4); Hematocrit 41.3 % (37.0-47.0); Hemoglobin 14.1 g/dL (12.2-16.2); Lymphocytes % 30.2 % (10-50); Mean Corpuscular HGB Conc 34.1 g/dL (31.8-35.4); Mean Corpuscular Hemoglobin 29.3 pg (27.0-31.2); Mean Platelet Volume 8.2 fl (7.4-10.4); Monocytes # 0.5 K/mm3 (0.1-1.0); Monocytes % 6.8 % (1.7-9.3); Neutrophils # 3.8 K/mm3 (1.8-7.8); Neutrophils % 58.2 % (37.0-80.0); Platelet Count 212 K/mm3 (142-424); Red Cell Distribution Width 13.8 % (11.5-17.5); White Blood Count 6.6 K/mm3 (4.8-10.8)
== END ==
PROVIDERS: PCP Family Medicine; Visit Provider Family Medicine
DX: Z20.822 Contact with and (suspected) exposure to COVID-19 (principal); R06.02 Shortness of breath; R51.9 Headache, unspecified; R53.83 Other fatigue
CPT/HCPCS: 36415; 71045; 85025; C9803; U0003; U0005

== ENCOUNTER → 2022-02-27 11:36 | Outpatient (CLI) | payer MEDICARE, SELFPAY ==
--- NOTE | 2022-02-27 12:12 | XR_ITS ---
FINAL REPORT CLINICAL HISTORY: left 2nd toe injury FINDINGS: 3 views of the left foot were obtained. There is no acute fracture or dislocation. There is a 1.7 cm os trigonum. The joint spaces are intact. The soft tissues are unremarkable. IMPRESSION: No acute process. Reviewed, Interpreted and Dictated by Clarence Shields MD Transcribed by Jasiel Babcock Authenticated and [facility]
--- NOTE | 2022-02-27 12:12 | XR_ITS ---
FINAL REPORT CLINICAL HISTORY: L 2nd toe injury FINDINGS: Multiple views of the left toes were obtained. There is no acute fracture. There is no dislocation. There are no acute soft tissue abnormalities. IMPRESSION: No acute process. Reviewed, Interpreted and Dictated by Clarence Shields MD Transcribed by Jasiel Babcock Authenticated and . [facility]
[2022-02-27 12:49] LABS: Basophils # 0.1 K/mm3 (0-0.2); Basophils % 1.3 % (0.1-2.0); Eosinophils # 0.1 K/mm3 (0.0-0.4); Eosinophils % 1.6 % (0.1-12.0); Hematocrit 48.3 % (37.0-47.0); Hemoglobin 15.4 g/dL (12.2-16.2); Lymphocytes # 1.9 K/mm3 (0.7-4.5); Lymphocytes % 30.2 % (10-50); Mean Corpuscular HGB Conc 31.8 g/dL (31.8-35.4); Mean Corpuscular Hemoglobin 28.6 pg (27.0-31.2); Mean Corpuscular Volume 89.8 fl (81-99); Mean Platelet Volume 9.2 fl (7.4-10.4); Monocytes # 0.4 K/mm3 (0.1-1.0); Monocytes % 6.1 % (1.7-9.3); Neutrophils # 3.8 K/mm3 (1.8-7.8); Neutrophils % 60.7 % (37.0-80.0); Platelet Count 216 K/mm3 (142-424); Red Blood Count 5.38 M/mm3 (4.20-5.40); Red Cell Distribution Width 14.2 % (11.5-17.5); White Blood Count 6.2 K/mm3 (4.8-10.8)
[2022-02-27 13:02] LABS: Hemoglobin A1C 6.7 % (4.0-6.0)
[2022-02-27 13:49] LABS: Erythrocyte Sedimentation Rate 5 mm/hr (0-30)
[2022-02-27 14:08] LABS: Chloride 101 mmol/L (98-107)
[2022-02-27 14:09] LABS: Potassium 4.6 mmoL/L (3.5-5.1); Sodium 143 mmol/L (136-145)
[2022-02-27 14:11] LABS: Alanine Aminotransferase 27 U/L (12-78); Alkaline Phosphatase 87 U/L (38-126); Anion Gap 14.6 mEq/L (5-15); Aspartate Amino Transferase 33 U/L (14-36); Bilirubin,Total 0.3 mg/dl (0.2-1.3); Blood Urea Nitrogen 19 mg/dl (7-17); Carbon Dioxide 32 mmol/L (22.0-30.0); Estimated Glomerular Filt Rate 98 ml/min (>60); GFR (African American) 119 ML/MIN (>60)
[2022-02-27 14:12] LABS: Albumin Level 4.6 g/dl (3.5-5.0); Albumin/Globulin Ratio 1.7 (1.1-1.8); Calcium 10.1 mg/dl (8.4-10.2); Globulin 2.7 g/dL (1.3-3.2); Glucose 111 mg/dl (74-100); Total Protein,Serum 7.3 g/dl (6.3-8.2)
== END ==
PROVIDERS: PCP Family Medicine; Visit Provider Nurse Practitioner Family
DX: S99.922A Unspecified injury of left foot, initial encounter (principal); E11.9 Type 2 diabetes mellitus without complications; M79.672 Pain in left foot
CPT/HCPCS: 36415; 73630; 73660; 80053; 83036; 85025; 85651; 86140

== ENCOUNTER → 2022-03-05 12:52 | Outpatient (CLI) | payer MEDICARE, SELFPAY ==
--- NOTE | 2022-03-05 12:57 | US_ITS ---
FINAL REPORT CLINICAL HISTORY: decreased sensation, previous smoker, HTN, DM, hyperlipidemia, hx TIA, bilateral claudication, bilateral rest pain, left 2nd toe non healing wound x 3 weeks. FINDINGS: ANKLE-BRACHIAL PRESSURE INDICES Pressure indices are as follows: RIGHT LOWER EXTREMITY: Ankle-brachial pressure index: 1.0 Comments: Lower limits of normal LEFT LOWER EXTREMITY: Ankle-brachial pressure index: 1.0 Comments: Lower limits of normal CONCLUSION: No evidence of significant obstructive peripheral vascular disease of the lower extremities Reviewed, Interpreted and Dictated by Clarence Shields MD Transcribed by Stacie Santos Authenticated and [facility]
== END ==
PROVIDERS: PCP Family Medicine; Visit Provider Nurse Practitioner Family
DX: R20.0 Anesthesia of skin; R20.2 Paresthesia of skin; R60.0 Localized edema; R09.89 Other specified symptoms and signs involving the circulatory and respiratory systems
CPT/HCPCS: 93923

== ENCOUNTER → 2023-01-02 10:42 | Outpatient (CLI) | payer MEDICARE, SELFPAY ==
[2023-01-02 11:51] LABS: Adenovirus,PCR Not Detected (NotDetected); Bordetella Pertussis Not Detected (NotDetected); Chlamydophila Pneumoniae, PCR Not Detected (NotDetected); Coronavirus 19, PCR Not Detected (NotDetected); Coronavirus 229E Not Detected (NotDetected); Coronavirus NL63 Not Detected (NotDetected); Coronavirus OC43 Not Detected (NotDetected); Coronovirus HKU1,PCR Not Detected (NotDetected); Human Metapneumovirus Not Detected (NotDetected); Influenza A, PCR Not Detected (NotDetected); Influenza AH1, 2009 Not Detected (NotDetected); Influenza AH1, PCR Not Detected (NotDetected); Influenza AH3,PCR Not Detected (NotDetected); Influenza B, PCR Not Detected (NotDetected); Mycoplasma Pneumoniae, PCR Not Detected (NotDetected); Parainfluenza 1, PCR Not Detected (NotDetected); Parainfluenza 2, PCR Not Detected (NotDetected); Parainfluenza 3, PCR Not Detected (NotDetected); Parainfluenza 4, PCR Not Detected (NotDetected); Respiratory Syncytial Virus Not Detected (NotDetected); Rhinovirus/Enterovirus Not Detected (NotDetected)
[2023-01-02 12:01] LABS: Basophils % 0.5 % (0.1-2.0); Eosinophils # 0.1 K/mm3 (0.0-0.4); Eosinophils % 1.7 % (0.1-12.0); Hematocrit 50.3 % (37.0-47.0); Lymphocytes # 1.9 K/mm3 (0.7-4.5); Lymphocytes % 30.3 % (10-50); Mean Corpuscular HGB Conc 31.9 g/dL (31.8-35.4); Mean Platelet Volume 9.2 fl (7.4-10.4); Monocytes # 0.3 K/mm3 (0.1-1.0); Monocytes % 5.4 % (1.7-9.3); Neutrophils # 3.9 K/mm3 (1.8-7.8); Neutrophils % 62.1 % (37.0-80.0); Platelet Count 213 K/mm3 (142-424); Red Blood Count 5.52 M/mm3 (4.20-5.40); Red Cell Distribution Width 13.4 % (11.5-17.5); White Blood Count 6.2 K/mm3 (4.8-10.8)
[2023-01-02 12:20] LABS: Strep Scrn Group A (Rapid) Negative (Negative)
== END ==
PROVIDERS: PCP Family Medicine; Visit Provider Family Medicine
DX: J02.9 Acute pharyngitis, unspecified; R06.09 Other forms of dyspnea; Z20.828 Contact with and (suspected) exposure to other viral communicable diseases
CPT/HCPCS: 36415; 85025; 87430; 87581; 87632; 87798

== ENCOUNTER → 2023-02-28 08:23 | Outpatient (CLI) | payer MEDICARE, SELFPAY ==
--- NOTE | 2023-02-28 08:43 | XR_ITS ---
FINAL REPORT CLINICAL HISTORY: shoulder pain x1 month COMPARISON: None FINDINGS: 3 views of the right shoulder were obtained. There is no prior exam for comparison. There is no fracture or dislocation. Mild degenerative change of the shoulder is present. Soft tissues are normal. IMPRESSION: No acute osseous abnormality of the right shoulder. Mild degenerative change right shoulder. Reviewed, Interpreted and Dictated by Maria Del Carmen Tai MD Transcribed by Shreya Rees Authenticated and [facility]
== END ==
PROVIDERS: PCP Family Medicine; Visit Provider Family Medicine
DX: M25.511 Pain in right shoulder (principal)
CPT/HCPCS: 73030

== ENCOUNTER → 2023-03-01 08:49 | Outpatient (CLI) | payer MEDICARE, SELFPAY ==
--- NOTE | 2023-03-01 08:52 | XR_ITS ---
FINAL REPORT TECHNIQUE: Bone densitometry calculations of the lumbar spine and left hip were obtained. CLINICAL HISTORY: POST MENOPAUSAL COMPARISON: 10/18/2020 FINDINGS: Using 04/24, the bone mineral density of the left forearm is 0.617 g/cm2, corresponding to T-score of -1.3 and a Z score of 1.3. This is within the range of osteopenia. Interval lumbar spine surgery. Using the left hip, the bone mineral density of the femoral neck is 0.790 g/cm2, corresponding to a T-score of -0.5 and a Z-score of 1.5. This is within the range of normal. Previously measured 0.839 g/cm2 with T-score of-0.1 and Z-score of 1.8. FRAX not reported because all T-scores at or above-1.0. NOTE: T-score: Standard deviation compared with peak bone mass of young adult mean. *Following the recommendations of the International Society of Bone densitometry, classification of hip BMD is based on the lower of two T-scores; total hip or femoral neck. IMPRESSION: 1. Bone mineral density of the left forearm within the range of osteopenia. 2. Bone mineral density of the left femoral neck within the range of normal. Reviewed, Interpreted and Dictated by Maria Del Carmen Tai MD Transcribed by Olena Madsen Authenticated and [facility]
--- NOTE | 2023-03-01 08:52 | CT_ITS ---
FINAL REPORT TECHNIQUE: Thin section axial images were obtained through the lungs using a low-dose technique per lung cancer screening protocol. Reconstruction images were obtained using the axial data. Exam was performed using dose reduction technique. CLINICAL HISTORY: H/O TOBACCO USE, FORMER SMOKER, SMOKED FOR 10YRS 1/2PPD, QUIT 4 YEARS AGO, MOTHER HAD LUNG CANCER COMPARISON: 08/18/2021 FINDINGS: CTDLvol: 2.90 DLP: 94.29 Former smoker, quit 4 years prior Half pack per day for 10 years Lungs: No acute pulmonary abnormality. No suspicious masses or nodules. Lymph nodes: No thoracic lymphadenopathy. Mediastinum: Heart size is normal. There are prominent coronary artery calcifications. Pleura/pericardium: No pleural or pericardial effusion. Other: No acute abnormality in the upper abdomen. IMPRESSION: No suspicious pulmonary nodule or mass. Lung RADS: 1S Recommendation: 12 month follow-up low-dose CT chest Modifier S: Prominent coronary artery calcifications. Reviewed, Interpreted and Dictated by Maria Del Carmen Tai MD Transcribed by Olena Madsen Authenticated and [facility]
== END ==
PROVIDERS: PCP Family Medicine; Visit Provider Family Medicine
DX: Z78.0 Asymptomatic menopausal state; Z87.891 Personal history of nicotine dependence; Z12.2 Encounter for screening for malignant neoplasm of respiratory organs
CPT/HCPCS: 71271; 77080

== ENCOUNTER 2023-06-18 15:10 | Outpatient (POV) | payer MEDICARE, SELFPAY | END 2023-06-18 23:59 | disposition home or self-care (01) | LOC: SC 15:11 | PROVIDERS: PCP Family Medicine; Visit Provider Dermatology | DX: Z00.00 Encounter for general adult medical examination without abnormal findings (principal) ==

== ENCOUNTER 2023-11-27 06:37 | Outpatient (CLI) | payer MEDICARE, SELFPAY ==
--- NOTE | 2023-11-27 06:43 | XR_ITS ---
FINAL REPORT CLINICAL HISTORY: PAIN, FALL RIGHT HIP/LEG PAIN COMPARISON: None FINDINGS: RIGHT HIP Two views of the right hip demonstrate no acute fracture or dislocation. Mild degenerative change is present in bilateral hips. Postoperative changes are identified at the lumbosacral junction. The visualized bony structures are well aligned. There is a chronic calcification inferior to the ischial tuberosity on the right side. IMPRESSION: Mild degenerative change of the hips bilaterally is present. If symptoms persist, correlation with CT or MRI is suggested for further evaluation. Reviewed, Interpreted and Dictated by Bebeto Larson III, MD Transcribed by Shreya Rees Authenticated and [facility]
--- NOTE | 2023-11-27 06:43 | XR_ITS ---
FINAL REPORT TECHNIQUE: 2 views right humerus. CLINICAL HISTORY: PAIN, FALL PAIN DOWN TO FINGERS COMPARISON: None FINDINGS: RIGHT HUMERUS: 2 views of the right humerus failed to reveal any evidence of fracture or dislocation. There is mild degenerative change involving the shoulder joint. No soft tissue abnormality is present. IMPRESSION: Mild degenerative change right shoulder, no acute bony abnormality identified. Reviewed, Interpreted and Dictated by Bebeto Larson III, MD Transcribed by Shreya Rees Authenticated and . [facility]
--- NOTE | 2023-11-27 06:43 | XR_ITS ---
FINAL REPORT CLINICAL HISTORY: PAIN, FALL COMPARISON: None FINDINGS: RIGHT SHOULDER: 3 views of the right shoulder were obtained. There is no acute fracture or dislocation. Mild degenerative change of the right shoulder is present. There is no soft tissue abnormality. IMPRESSION: Mild right shoulder degenerative change without acute bony abnormality. Reviewed, Interpreted and Dictated by Bebeto Larson III, MD Transcribed by Shreya Rees Authenticated and [facility]
--- NOTE | 2023-11-27 06:44 | CT_ITS ---
FINAL REPORT CLINICAL HISTORY: HEADACHE COMPARISON: None FINDINGS: Axial images of the head were obtained without contrast. Coronal and sagittal reformatted images were also obtained. This study was performed with techniques to keep radiation doses as low as reasonably achievable (ALARA). Individualized dose reduction techniques using automated exposure control or adjustment of mA and/or kV according to the patient's size were employed. There is generalized age appropriate atrophy. There is no evidence of intracranial hemorrhage or mass. The ventricular size is within normal limits. There is no evidence of shift of the midline structures. No skull abnormality is seen on the bone window images. There are retention cysts or polyps present in the right maxillary sinus. IMPRESSION: Age-appropriate atrophy, no acute intracranial abnormality identified. Reviewed, Interpreted and Dictated by Bebeto Larson III, MD Transcribed by Shreya Rees Authenticated and [facility]
== END 2023-11-27 23:59 | disposition home or self-care (01) ==
LOC: RAD 06:38
PROVIDERS: PCP Family Medicine; Visit Provider Family Medicine
DX: G44.89 Other headache syndrome (principal); M25.551 Pain in right hip; M25.511 Pain in right shoulder; S49.91XA Unspecified injury of right shoulder and upper arm, initial encounter
CPT/HCPCS: 70450; 73030; 73060; 73502

== ENCOUNTER 2024-01-09 12:16 | Outpatient (CLI) | payer MEDICARE, SELFPAY ==
--- NOTE | 2024-01-09 12:22 | XR_ITS ---
FINAL REPORT TECHNIQUE: Chest PA & Lateral CLINICAL HISTORY: R07.9 concerned for pneumonia, shortness of breath COMPARISON: 11/14/2021 FINDINGS: 2 views of the chest were performed. The heart is mildly enlarged. The aorta is unfolded. The mediastinum is within normal limits. Mild chronic changes are noted at the lung bases. There are no pleural effusions. There is no pneumothorax. The bony thorax appears intact. IMPRESSION: Chronic changes without acute cardiopulmonary process. Reviewed, Interpreted and Dictated by Clarence Shields MD Transcribed by Elaina Matias Authenticated and [facility]
== END 2024-01-09 23:59 | disposition home or self-care (01) ==
LOC: RAD 12:18
PROVIDERS: PCP Family Medicine; Visit Provider Family Medicine
DX: R07.9 Chest pain, unspecified (principal)
CPT/HCPCS: 71046

== ENCOUNTER 2024-06-05 08:44 | Outpatient (CLI) | payer MEDICARE, SELFPAY ==
--- NOTE | 2024-06-05 08:50 | CT_ITS ---
FINAL REPORT CLINICAL HISTORY: HX OF TOBACCO former smoker quit 6 years ago 1/2ppd x10 years COMPARISON: 03/01/2023 FINDINGS: CT CHEST LOW DOSE SCREENING HISTORY: Screening exam for lung cancer. 73-year-old female, former smoker who quit 6 years ago, 5 pack year smoking history DOSE: CTDIvol: 2.9 mGy, DLP: 108.38 mGy*cm COMPARISON: 03/01/2023. TECHNIQUE: Axial CT without IV contrast administration using low dose protocol. This study was performed with techniques to keep radiation doses as low as reasonably achievable, (ALARA). Individualized dose reduction techniques using automated exposure control or adjustment of mA and/or kV according to the patient's size were employed. FINDINGS: There is a possible new nodule in the left lower lobe best seen on image #48 of series 3 and coronal image #47 of series 601. This measures 4 mm in size, and is more prominent compared with the prior LDCT of February 2023, although this may represent crossing vessels as well. No mediastinal or hilar adenopathy is noted. No evidence of a pleural effusion is seen. No other abnormal parenchymal densities are noted. IMPRESSION: Possible 4 mm nodule in the left lower lobe as described above, versus crossing vessels. LUNG RADS CATEGORY 3 RECOMMENDATION: 6 month LDCT follow up Reviewed, Interpreted and Dictated by Alysa Anaya MD Transcribed by Shreya Rees Authenticated and [facility]
== END 2024-06-05 23:59 | disposition home or self-care (01) ==
LOC: RAD 08:46
PROVIDERS: PCP Family Medicine; Visit Provider Family Medicine
DX: Z87.891 Personal history of nicotine dependence (principal)
CPT/HCPCS: 71271

== ENCOUNTER 2024-12-01 14:06 | Outpatient (CLI) | payer MEDICARE, SELFPAY ==
--- NOTE | 2024-12-01 14:08 | CT_ITS ---
FINAL REPORT CLINICAL HISTORY: SCREENING. Former smoker-quit 6 yrs ago, smoked half ppd for 7-8 yrs. Mother had lung cancer. FINDINGS: CT CHEST LOW DOSE SCREENING HISTORY: Screening exam for lung cancer. 74-year-old female, former smoker who quit 6 years ago, 29-[id number] history. DOSE: CTDI vol: 2.90 mGy, DLP: 98.99 mGy*cm TECHNIQUE: Axial CT without IV contrast administration using low dose protocol. This study was performed with techniques to keep radiation doses as low as reasonably achievable, (ALARA). Individualized dose reduction techniques using automated exposure control or adjustment of mA and/or kV according to the patient's size were employed. No acute lung disease is present. There is a stable 3 mm left lower lobe nodule present, best seen on image #44 of series 3. No new masses or nodules are identified. No pleural or pericardial effusion is seen. No adenopathy is present. IMPRESSION: Stable 3 mm left lower lobe nodule, favor benign. LUNG RADS CATEGORY 2 RECOMMENDATION: 12 month LDCT follow up Reviewed, Interpreted and Dictated by Alysa Anaya MD Transcribed by Shreya Rees Authenticated and [facility]
--- OUTSIDE RECORDS SUMMARY | 2024-12-01 14:12 | XMS_ITS | Clinical Summary ---
Author Organization Healthcare Address [address] [place] [address] Care Team Providers Care Founding Partner Name Role Phone Raya Jeffery CHIDI Primary Care Provider Social History Tobacco Use Types Packs/Day Years Used Date Smoking Tobacco: Never Assessed Comments Unknown Sex and Gender Information Value Date Recorded Sex Assigned at Not on file Legal Sex Female 7:08 PM EDT Gender Identity Not on file Sexual Orientation Not on file Plan of Treatment Health Maintenance Due Date Last Done Comments [facility]-Bone Density Scan 1948 [facility]-Depression Screening 1948 [facility]-Hepatitis C Screening 1950 [facility]-Medicare Annual Wellness (AWV) 1948 [facility]-/Child/Adol SDOH Screenings 1948 [facility]- SDOH Screenings 1966 [facility]-Adult SDOH Screenings 1966 [facility]-DTaP,Tdap,and Td Vaccines (1 - Tdap) 1967 [facility]-Zoster Vaccines (1 of 2) 1998 [facility]-RSV Vaccine: 60+ Years or (1 - 1-dose 75+ series) 2023 [id number]-60 Vaccine ( season) 2023 03/28/2022, 02/22/2021, 06/29/2020, Additional history exists [facility]-Influenza Vaccine (#1) 12/21/202402/19, 03/31/2021, 02/16/2020 FIT-DNA Discontinued 04/02/2022 [facility]-Colorectal Cancer Screening Discontinued [facility]-Pneumococcal Vaccine: 50+ Years Completed 02/19/2023, 02/16/2020, 11/21/2018 CT Colonography Discontinued Colonoscopy Discontinued FIT Discontinued FOBT Discontinued HPV Vaccines Aged Out No longer eligi ble based on patient's age to complete this topic Sigmoidoscopy Discontinued [facility]-HIB Vaccines Aged Out No longer e ligible based on patient's age to complete this topic [facility]-Hepatitis A Vaccines Aged Out No longer eligible based on patient's age to complete this topic [facility]-IPV Vaccines Aged Out No longer e ligible based on patient's age to complete this topic [facility]-Rotavirus Vaccines Aged Out No lo nger eligible based on patient's age to complete this topic Insurance [facility] MEDICARE Care Teams Founding Partner Relationship Specialty Start Date End Date Raya Jeffery APRN [address] [place] [id number] PCP - General 09/02/20
== END 2024-12-01 23:59 | disposition home or self-care (01) ==
LOC: RAD 14:07
PROVIDERS: PCP Family Medicine; Visit Provider Family Medicine
DX: Z12.2 Encounter for screening for malignant neoplasm of respiratory organs (principal); R91.1 Solitary pulmonary nodule; Z87.891 Personal history of nicotine dependence; Z80.1 Family history of malignant neoplasm of trachea, bronchus and lung
CPT/HCPCS: 71271

== ENCOUNTER 2025-04-05 08:47 | Outpatient (CLI) | payer MEDICARE, SELFPAY ==
--- NOTE | 2025-04-05 08:49 | XR_ITS ---
FINAL REPORT CLINICAL HISTORY: SCREENING COMPARISON: 12/01/2024 FINDINGS: Using the left hip, the bone mineral density of the femoral neck is 0.870 g/cm2, corresponding to T-score of 0.2. The bone mineral density change versus baseline is 2.1%. Using the right hip, the bone mineral density of the femoral neck is 1.056 g/cm2, corresponding to a T-score of 0.9. The bone mineral density change versus baseline is 14.6%. Using the left forearm, the bone mineral density of the mid is 0.535 g/cm?, corresponding to a T-score of -1.3. The bone mineral density change versus baseline is 0.7%. NOTE: T-score: Standard deviation compared with peak bone mass of young adult mean. *Following the recommendations of the International Society of Bone densitometry, classification of hip BMD is based on the lower of two T-scores; total hip or femoral neck. IMPRESSION: Normal bone mineral density of the bilateral hips. Diminished bone mineral density of the left forearm consistent with osteopenia. Reviewed, Interpreted and Dictated by Clarence Shields MD Transcribed by Shreya Rees Authenticated and [facility]
== END 2025-04-05 23:59 | disposition home or self-care (01) ==
LOC: RAD 08:47
PROVIDERS: PCP Family Medicine; Visit Provider Family Medicine
DX: Z13.820 Encounter for screening for osteoporosis (principal); R93.6 Abnormal findings on diagnostic imaging of limbs; Z78.0 Asymptomatic menopausal state
CPT/HCPCS: 77080